=== PATIENT | male | born 1970 | race Caucasian/White ===

== ENCOUNTER 2021-10-10 03:40 | Emergency (ER) | payer MEDICAID, SELFPAY ==
[2021-10-10 03:45] VITALS: BP 155/77; BP 89/75; PULSE 79; PULSE 98; RESP 8; O2SAT 100; O2SAT 98; BMI 24.7
--- NOTE | 2021-10-10 04:03 | ED.OVERDOSE ---
HPI - Overdose General Chief Complaint: ETOH/Substance Use Stated Complaint: od Time Seen by Provider: 10/10/21 04:03 Source: EMS Mode of arrival: EMS Limitations: other (Unresponsive, overdosed) History of Present Illness HPI Narrative: Patient comes to the emergency room by ambulance. Patient was found lying down in a lawn chair in the sidewalk . Patient's family gave him 4 mg of intranasal Narcan. EMS reports that his respiratory rate increased from 8-20. They did not obtain an initial oxygen saturation. On arrival to the emergency room, patient arrived on a non-rebreather, saturating 100%, respiratory rate 8, pinpoint pupils, unresponsive. Four more mg of Narcan were given on arrival Related Data Allergies Allergy/AdvReac Type Severity Reaction Status Date / Time Unable to Assess Allergy Unverified 10/10/21 04:03 Review of Systems Review of Systems: Yes Unobtainable due to mental condition [facility] Past Medical History Medical History (Updated 10/10/21 @ 08:42 by Shayy Ladd MD) Overdose Substance abuse Social History Social History Advance Directives: No Advance Directives Information Provided: Yes Physical Exam Vital Signs: Vital Signs: Last Vital Signs Temp 98.2 F 10/10/21 04:08 Pulse 80 10/10/21 04:08 Resp 14 10/10/21 04:08 BP 125/71 10/10/21 04:08 Pulse Ox 100 10/10/21 04:08 O2 Del Method 10/10/21 04:08 Oxygen Flow Rate 15 10/10/21 03:45 BMI result Body Mass Index 24.7 Const: Other: Appearance: Unresponsive Eyes: Pinpoint pupils, Pupils equal, round and reactive to light. ENT: Pharynx normal. Neck: Normal inspection. Neck supple. No lymph nodes noted. No crepitus CVS: Normal heart rate and rhythm. Pulses normal. Normal S1 and S2 Respiratory: No respiratory distress. Respiratory rate 8, saturating 100% with a non-rebreather Breath sounds normal. No Wheezing. No rales Abdomen: Soft and nontender. No rigidity. No distention. Skin: Skin warm and dry. Normal skin color. Normal skin turgor. Extremities: No lower extremity edema. No Lacerations. No Rash Neuro: Unable to participating cranial nerve assessment. Psych: Unresponsive Course Course Course Narrative: Patient has received a total of 8 mg intranasal Narcan. Patient is barely waking up. Labs pending. Care team consult pending for WILBUR johnathan Patient will be provided with home Narcan Patient has been awake alert and oriented x3, normal gait. Patient's blood glucose is now 75. Patient eating. Patient states that he has no interest in talking to the care team or detox. Patient's family at bedside, patient will likely be discharged MDM - Overdose Lab Data Result diagrams: 10/10/21 04:00 10/10/21 04:00 Labs: Lab Results 10/10/21 10/10/21 10/10/21 Range/Units 04:00 04:00 06:08 WBC 10.0 (4.8-10.8) X10*3/uL RBC 4.53 L (4.60-5.80) X10*6/uL Hgb 14.2 (14.0-18.0) g/dl Hct 43.5 (42.0-52.0) % MCV 96.0 (80.0-98.0) fL MCH 31.3 (27.0-33.0) pg MCHC 32.6 (31.0-36.0) g/dl RDW 13.3 (11.0-16.0) % Plt Count 390 (160-400) X10*3/uL MPV 9.2 L (9.4-12.4) fL Immature Gran % (Auto) 0.9 H (0.0-0.4) % Neut % (Auto) 59.0 (45-73) % Lymph % (Auto) 31.9 (20-40) % Rogers % (Auto) 4.3 (2-11) % Eos % (Auto) 3.2 (0-4) % Baso % (Auto) 0.7 (0-2) % Lymph # (Auto) 3.2 (1.2-4.9) X10*3/uL Rogers # (Auto) 0.4 (0.1-1.2) X10*3/uL Eos # (Auto) 0.3 (0.0-0.4) X10*3/uL Baso # (Auto) 0.1 (0.0-0.2) X10*3/uL Abs Immat Gran (auto) 0.09 H (0.00-0.03) X10*3/uL Absolute Neuts (auto) 5.9 (2.0-8.3) x10*3/uL Absolute Nucleated RBC 0.000 (0.0-0.012) X10*3/uL Nucleated RBC % (auto) 0.0 (0.0-0.2) /100WBC Sodium 136 (135-145) mmol/L Potassium 4.5 (3.3-5.1) mmol/L Chloride 101 (96-108) mmol/L Carbon Dioxide 16 L (22-29) mmol/L Anion Gap 24 H (12-20) BUN 14 (9-16) mg/dL Creatinine 1.44 H (0.5-1.4) mg/dL Estim Creat Clear Calc 59.3 Estimated GFR 52 POC Glucose 65 (60-115) mg/dL Random Glucose 437 H* (60-115) mg/dL Calcium 8.3 L (8.4-10.2) mg/dL Total Bilirubin 0.2 (0.0-1.0) mg/dL Direct Bilirubin < 0.2 (0.0-0.5) mg/dL AST 227 H (5-37) U/L ALT 148 H (0-40) U/L Alkaline Phosphatase 105 (39-117) U/L Total Protein 7.5 (6.5-8.0) g/dL Albumin 4.3 (3.5-5.0) g/dL Ethyl Alcohol 165 mg/dL Acetone, Qual Negative (Negative) COVID-19 ([facility]) (Negative) COVID-19 Clin Com 10/10/21 10/10/21 Range/Units 07:26 07:27 WBC (4.8-10.8) X10*3/uL RBC (4.60-5.80) X10*6/uL Hgb (14.0-18.0) g/dl Hct (42.0-52.0) % MCV (80.0-98.0) fL MCH (27.0-33.0) pg MCHC (31.0-36.0) g/dl RDW (11.0-16.0) % Plt Count (160-400) X10*3/uL MPV (9.4-12.4) fL Immature Gran % (Auto) (0.0-0.4) % Neut % (Auto) (45-73) % Lymph % (Auto) (20-40) % Rogers % (Auto) (2-11) % Eos % (Auto) (0-4) % Baso % (Auto) (0-2) % Lymph # (Auto) (1.2-4.9) X10*3/uL Rogers # (Auto) (0.1-1.2) X10*3/uL Eos # (Auto) (0.0-0.4) X10*3/uL Baso # (Auto) (0.0-0.2) X10*3/uL Abs Immat Gran (auto) (0.00-0.03) X10*3/uL Absolute Neuts (auto) (2.0-8.3) x10*3/uL Absolute Nucleated RBC (0.0-0.012) X10*3/uL Nucleated RBC % (auto) (0.0-0.2) /100WBC Sodium (135-145) mmol/L Potassium (3.3-5.1) mmol/L Chloride (96-108) mmol/L Carbon Dioxide (22-29) mmol/L Anion Gap (12-20) BUN (9-16) mg/dL Creatinine (0.5-1.4) mg/dL Estim Creat Clear Calc Estimated GFR POC Glucose 73 (60-115) mg/dL Random Glucose (60-115) mg/dL Calcium (8.4-10.2) mg/dL Total Bilirubin (0.0-1.0) mg/dL Direct Bilirubin (0.0-0.5) mg/dL AST (5-37) U/L ALT (0-40) U/L Alkaline Phosphatase (39-117) U/L Total Protein (6.5-8.0) g/dL Albumin (3.5-5.0) g/dL Ethyl Alcohol mg/dL Acetone, Qual (Negative) COVID-19 ([facility]) Negative (Negative) COVID-19 Clin Com See Note Critical Care Time Critical Care Time Critical Care Time: Yes Total Critical Care Time: 30 Attestation: I have personally provided critical care time. Time includes review of lab data, radiology results, discussion with consultants, and monitoring for potential decompensation. Intervention performed as documented. Discharge Plan Discharge Clinical Impression: Overdose, Hyperglycemia Patient Disposition: Home, Self-Care Instructions: Adult Overdose (ED) Additional Instructions: Please follow-up with your primary care physician tomorrow. If you have any worsening or new symptoms, please return to the emergency room or call 911
--- NOTE | 2021-10-10 04:04 | ECG_ITS ---
Test Reason : OVERDOSE Blood Pressure : / mmHG Vent. Rate : 082 BPM Atrial Rate : 000 BPM P-R Int : 000 ms QRS Dur : 092 ms QT Int : 392 ms P-R-T Axes : 000 050 045 degrees QTc Int : 457 ms Artifact in tracing Normal sinus rhythm No obvious findings in visualized leads Consdier repeating as clinically indicated No previous ECGs available Referred By: Shayy Ladd Electronically Signed By:PARI MAURO
[2021-10-10 04:08] VITALS: BP 125/71; PULSE 80; RESP 14; TEMP 36.8; O2SAT 100
[2021-10-10 04:09] LABS: Basophils Absolute Auto 0.1 X10*3/uL (0.0-0.2); Basophils Percent Auto 0.7 % (0-2); Eosinophils Absolute Auto 0.3 X10*3/uL (0.0-0.4); Eosinophils Percent Auto 3.2 % (0-4); Hematocrit 43.5 % (42.0-52.0); Hemoglobin 14.2 g/dl (14.0-18.0); Imm Gran Abs Auto 0.09 X10*3/uL (0.00-0.03); Imm Gran Pct Auto 0.9 % (0.0-0.4); Lymphocytes Absolute Auto 3.2 X10*3/uL (1.2-4.9); Lymphocytes Percent Auto 31.9 % (20-40); MANUAL DIFF FLAG NO; Mean Corpuscular HGB Conc 32.6 g/dl (31.0-36.0); Mean Corpuscular Hemoglobin 31.3 pg (27.0-33.0); Mean Platelet Volume 9.2 fL (9.4-12.4); Monocytes Absolute Auto 0.4 X10*3/uL (0.1-1.2); Monocytes Percent Auto 4.3 % (2-11); Neutrophils Absolute Auto 5.9 x10*3/uL (2.0-8.3); Platelet Count 390 X10*3/uL (160-400); Red Blood Count 4.53 X10*6/uL (4.60-5.80); Red Cell Distribution Width 13.3 % (11.0-16.0)
[2021-10-10] MEDS: Naloxone HCl Nasal 4 MG SPRAY NOSTRILALT (04:16)
[2021-10-10] MEDS: 0.9 % Sodium Chloride 2,000 ML 999 ML IVCONT (04:16)
[2021-10-10 04:52] LABS: Alanine Aminotransferase 148 U/L (0-40); Albumin Level 4.3 g/dL (3.5-5.0); Alkaline Phosphatase 105 U/L (39-117); Anion Gap 24 (12-20); Aspartate Amino Transferase 227 U/L (5-37); Bilirubin Direct < 0.2 mg/dL (0.0-0.5); Bilirubin Total 0.2 mg/dL (0.0-1.0); Blood Urea Nitrogen 14 mg/dL (9-16); Calcium 8.3 mg/dL (8.4-10.2); Carbon Dioxide 16 mmol/L (22-29); Chloride 101 mmol/L (96-108); Creatinine Clr Calc Pharmacy 59.3; Estimated Glomerular Filt Rate 52; Ethanol 165 mg/dL; Glucose Random 437 mg/dL (60-115); Potassium 4.5 mmol/L (3.3-5.1); Sodium 136 mmol/L (135-145); Total Protein 7.5 g/dL (6.5-8.0)
[2021-10-10] MEDS: Insulin Regular, Human 100 UNIT/ML 3 ML VIAL 10 UNIT IVPUSH (05:00)
[2021-10-10 05:01] LABS: Acetone, serum QL Negative (Negative)
[2021-10-10] MEDS: 0.9 % Sodium Chloride 1,000 ML 999 ML IVCONT (05:02)
[2021-10-10 06:13] LABS: Glucose, Whole Blood 65 mg/dL (60-115)
[2021-10-10 07:31] LABS: Glucose, Whole Blood 73 mg/dL (60-115)
[2021-10-10 07:54] LABS: COVID-19 Test Negative (Negative); IDNOW Serial# 16C4AD1C
[2021-10-10 08:44] LABS: Glucose, Whole Blood 75 mg/dL (60-115)
--- NOTE | 2021-10-10 08:49 | PC.NURSE ---
this writer technical publications assumed care of this pt at 0700. pt alert and oriented, he denies pain. poc at 0730 75, sandwich and diet ciara dimas given but pt stated that he was not hungry. poc rechecked at 0840 75, sandwich and diet ciara dimas given and pt encouraged to eat to improve glucose level. Dr. Ladd at bedside, offered pt detox and he declined. will recheck sugar.
[2021-10-10 09:11] LABS: Glucose, Whole Blood 90 mg/dL (60-115)
== END 2021-10-10 09:31 | disposition home or self-care (01) ==
PROVIDERS: Emergency Provider Emergency Medicine
DX: T50.901A Poisoning by unspecified drugs, medicaments and biological substances, accidental (unintentional), initial encounter (principal); R40.4 Transient alteration of awareness; F19.10 Other psychoactive substance abuse, uncomplicated; Y92.480 Sidewalk as the place of occurrence of the external cause; R73.9 Hyperglycemia, unspecified; Z20.822 Contact with and (suspected) exposure to COVID-19
CPT/HCPCS: 80048; 80076; 82009; 82077; 82947; 85025; 87635; 93005; 96361; 96374; 99284

== ENCOUNTER → 2021-11-25 14:21 | Outpatient (BNVA) | payer MEDICAID, SELFPAY | PROVIDERS: PCP Nurse Practitioner; Visit Provider Surgery | DX: K40.90 Unilateral inguinal hernia, without obstruction or gangrene, not specified as recurrent (principal); K42.9 Umbilical hernia without obstruction or gangrene | CPT/HCPCS: 99202 ==

== ENCOUNTER → 2021-12-25 07:33 | Day surgery (SDC) | payer MEDICAID, SELFPAY ==
[2021-12-21 13:41] VITALS: BMI 23.1
--- NOTE | 2021-12-24 09:29 | P.CONAN_ITS ---
HPI - Anesthesia Eval Consult details Narrative: 51yo M for Right Hernia Repair Inguinal,with mesh, Right Hernia Repair Umbilical with mesh [facility] Active Problems Active Problems: All Active Problems (Updated 12/21/21 @ 13:41 by Iris Larry RN) Umbilical hernia (Acute) Right inguinal hernia (Acute) Overdose (Acute) Substance abuse (Acute) Past Medical History Medical History (Updated 12/21/21 @ 13:41 by Iris Larry RN) Overdose Right inguinal hernia Substance abuse Umbilical hernia Family History Family History (Updated 11/25/21 @ 14:34 by Traci Banuelos CMA) Mother CVD (cardiovascular disease) Father No problems noted. Surgical History Surgical History (Updated 11/25/21 @ 14:34 by Traci Banuelos CMA) No pertinent past surgical history Social History Social History (Updated 11/25/21 @ 14:31 by Traci Banuelos CMA) Are you a primary manager respiratory care to a significant other at home: No Do you presently have visiting nurse or other home services: No Alcohol intake: current Alcohol intake frequency: former alcohol drinker Patient Tobacco Use Status: Current everyday Tobacco user Tobacco use type: Cigarette Cigarette Packs Per Day: 1 Cigarettes Per Day: 20.0 Meds Allergies Allergy/AdvReac Type Severity Reaction Status Date / Time No Known Allergies Allergy Verified 11/25/21 14:32 Home Medications Medication Instructions Recorded Confirmed Last Taken Type aripiprazole 5 mg tablet 5 mg PO DAILY 11/25/21 12/21/21 Unknown History Exam Exam Date and Time: December 24, 2021 0929 Height,Weight and Vital Signs: Height 5 ft 9 in Weight 70.931 kg Pertinent Lab Results Pertinent Lab Results: Laboratory Tests 10/10/21 10/10/21 04:00 04:00 WBC 10.0 Hgb 14.2 Hct 43.5 Plt Count 390 Sodium 136 Potassium 4.5 Chloride 101 Carbon Dioxide 16 L BUN 14 Creatinine 1.44 H Narrative Narrative: EKG 09/2021 Vent. Rate : 082 BPM ? ? Atrial Rate : 000 BPM ?? P-R Int : 000 ms? QRS Dur : 092 ms ? ? QT Int : 392 ms ? ? ? P-R-T Axes : 000 050 045 degrees ?? QTc Int : 457 ms ? Artifact in tracing Normal sinus rhythm No obvious findings in visualized leads Consdier repeating as clinically indicated No previous ECGs available Assessment and Plan Assessment Anesthesia Assessment: Chart Reviewed
[2021-12-25 07:59] LABS: Amphetamine Screen Urine Not Detected (Not Detect); Barbiturates, Urine Not Detected (Not Detect); Benzodiazepines Screen Urine Not Detected (Not Detect); Cannabinoid Screen Urine Not Detected (Not Detect); Cocaine Screen Urine POSITIVE (Not Detect); Fentanyl, urine POSITIVE (Not Detect); Opiate Screen Urine Not Detected (Not Detect); Phencyclidine Screen Urine Not Detected (Not Detect)
== END ==
PROVIDERS: Nurse Practitioner; Visit Provider Surgery
DX: K40.90 Unilateral inguinal hernia, without obstruction or gangrene, not specified as recurrent (principal); K42.9 Umbilical hernia without obstruction or gangrene; Z53.8 Procedure and treatment not carried out for other reasons; R82.5 Elevated urine levels of drugs, medicaments and biological substances
CPT/HCPCS: 80307

== ENCOUNTER 2023-07-25 05:09 | Emergency (ER) | payer SELFPAY ==
--- NOTE | ~2023-07-25 | XR_ITS ---
EXAMINATION: XR CHEST CLINICAL INFORMATION: Overdose. Hypoxia. COMPARISON: None available. TECHNIQUE: Frontal view of the chest was obtained. FINDINGS: No significant abnormality is noted involving the heart, lungs, mediastinum, bony thorax or soft tissues. XR/XR chest 1V IMPRESSION: Unremarkable examination.
[2023-07-25 05:21] VITALS: BP 139/92; PULSE 140; PULSE 92; RESP 14; TEMP 36.3; O2SAT 97; BMI 24.2
[2023-07-25 05:52] LABS: Basophils Absolute Auto 0.1 X10*3/uL (0.0-0.2); Basophils Percent Auto 0.2 % (0-2); Eosinophils Absolute Auto 0.1 X10*3/uL (0.0-0.4); Eosinophils Percent Auto 0.4 % (0-4); Hematocrit 46.8 % (42.0-52.0); Hemoglobin 15.7 g/dl (14.0-18.0); Imm Gran Abs Auto 0.24 X10*3/uL (0.00-0.03); Imm Gran Pct Auto 0.9 % (0.0-0.4); Lymphocytes Percent Auto 3.9 % (20-40); MANUAL DIFF FLAG SCAN; Mean Corpuscular HGB Conc 33.5 g/dl (31.0-36.0); Mean Corpuscular Hemoglobin 32.1 pg (27.0-33.0); Mean Corpuscular Volume 95.7 fL (80.0-98.0); Monocytes Absolute Auto 0.9 X10*3/uL (0.1-1.2); Monocytes Percent Auto 3.5 % (2-11); Neutrophils Absolute Auto 23.1 x10*3/uL (2.0-8.3); Neutrophils Percent Auto 91.1 % (45-73); Platelet Count 414 X10*3/uL (160-400); Red Blood Count 4.89 X10*6/uL (4.60-5.80); SCAN SMEAR FLAG 1; White Blood Count 25.4 X10*3/uL (4.8-10.8)
[2023-07-25 05:56] LABS: VBG Base Excess -7.2 mmol/L; VBG HCO3 20 mmol/L (22-26); VBG O2 % Saturation < 30.0 %; VBG pCO2 49 mmHg; VBG pH 7.22 (7.32-7.43); VBG pO2 25 mmHg
[2023-07-25 05:56] LABS: Venous Blood Gas Refer to POC result
[2023-07-25 06:13] LABS: Alanine Aminotransferase 212 U/L (0-40); Albumin Level 4.6 g/dL (3.5-5.0); Alkaline Phosphatase 162 U/L (39-117); Anion Gap 22 (12-20); Aspartate Amino Transferase 381 U/L (5-37); Bilirubin Total 0.4 mg/dL (0.0-1.0); Blood Urea Nitrogen 16 mg/dL (9-16); Carbon Dioxide 19 mmol/L (22-29); Chloride 109 mmol/L (96-108); Creatinine Clr Calc Pharmacy 62.8; Estimated Glomerular Filt Rate > 60; Ethanol 40 mg/dL; Glucose Random 54 mg/dL (60-115); Lipase 58 U/L (8-78); Potassium 4.9 mmol/L (3.3-5.1); Sodium 145 mmol/L (135-145); Total Protein 8.1 g/dL (6.5-8.0)
--- NOTE | 2023-07-25 06:21 | PC.NURSE ---
Blood glucose found to be 54. Pt given apple juice, ciara dimas, and a sandwich. made aware.
[2023-07-25 06:25] LABS: SLIDE REVIEW VERIFIED
--- NOTE | 2023-07-25 06:27 | ED_ITS ---
HPI - Overdose General Chief Complaint: Overdose Stated Complaint: od Time Seen by Provider: 07/25/23 05:14 Source: patient and EMS Mode of arrival: EMS Limitations: no limitations History of Present Illness ED Provider: Dr. Gonzalo Kolb HPI Narrative: 53-year-old male with a history of opiate use disorder who presents emergency department for accidental overdose. The patient denied using drugs and states he does not know why he is here today. According to EMS patient was found unresponsive in an apartment building. First responders gave him intranasal Narcan 2 mg with no response. Paramedics then gave him intranasal Narcan 2 mg again with no response. An IV was established and he was given Narcan 2 mg IV and the patient woke up. Patient became very combative and had to be transported in restraints. When he emergency department he was awake enough to cooperate. He was transferred to the stressor and not placed in restraints. Paramedics report that the patient did have an initial O2 saturation of 50% on room air. Shortly before arriving in the emergency department the patient pulled out his own IV. Related Data Home Medications ?Medication ?Instructions ?Recorded ?Confirmed aripiprazole 5 mg tablet 5 mg PO DAILY 11/25/21 12/21/21 Allergies Allergy/AdvReac Type Severity Reaction Status Date / Time No Known Allergies Allergy Verified 07/25/23 05:25 Review of Systems 2 Review of Systems: Yes all other systems are reviewed and are negative [facility] Past Medical History [facility] Narrative: Past medical history: Patient was seen in the emergency department on 10/10/2021 for an accidental opiate overdose. Social history. He does smoke cigarettes. He does drink alcohol. He denies using drugs. Medical History (Updated 07/25/23 @ 06:44 by Gonzalo Kolb MD) Umbilical hernia Right inguinal hernia Overdose Substance abuse Surgical History (Updated 11/25/21 @ 14:34 by Traci Banuelos CMA) No pertinent past surgical history Family History Family History (Updated 11/25/21 @ 14:34 by Traci Banuelos CMA) Mother CVD (cardiovascular disease) Father No problems noted. Social History Social History (Updated 11/25/21 @ 14:31 by Traci Banuelos CMA) Are you a primary field care advocate to a significant other at home: No Do you presently have visiting nurse or other home services: No Alcohol intake: current Alcohol intake frequency: former alcohol drinker Alcohol type: hard liquor Patient Tobacco Use Status: Current everyday Tobacco user Tobacco use type: Cigarette Cigarette Packs Per Day: 1 Cigarettes Per Day: 20.0 Smoked in Last 30 Days: Yes Use of substances other than those prescribed or required for medical reasons: No Advance Directives: No Do you have a plan to hurt others: No Plan Physical Exam 2 Vital Signs: Vital Signs: Last Vital Signs Temp 97.4 F 07/25/23 05:21 Pulse 92 07/25/23 05:21 Resp 14 07/25/23 05:21 BP 139/92 H 07/25/23 05:21 Pulse Ox 97 07/25/23 05:21 O2 Del Method Room Air 07/25/23 05:21 BMI result Body Mass Index 24.2 Vital signs were Exam: General: Patient is awake, able to answer questions, he is tremulous, he was diaphoretic Head: Normocephalic, atraumatic EENT: PERRL, Lids normal, sclera normal, conjunctiva normal, nose normal , ears normal, throat without erythema or exudates Neck: Supple, no adenopathy Lung: Breath sounds were symmetric, patient had diffuse rhonchi with no wheezing or rales Chest: symmetric movement, nontender Heart: regular rate and rhythm, normal S1, S2 no murmurs or rubs Abdomen: soft, non-tender, nondistended, normal bowel sounds Back: no vertebral tenderness, no CVAT Extremities: no deformities, moves all extremities symmetrically Neuro: Awake, alert, oriented, normal speech, cranial nerves intact, moves all extremities symmetrically Medications Administered Discontinued Medications Generic Name Dose Route Start Last Admin Trade Name Freq PRN Reason Stop Dose Admin Diphenhydramine HCl 50 mg 07/25/23 05:14 07/25/23 05:33 Diphenhydramine Hcl 50 Mg/Ml Vial IM 07/25/23 05:15 Not Given ONCE ONE Haloperidol Lactate 10 mg 07/25/23 05:14 07/25/23 05:34 Haloperidol Lactate 5 Mg/Ml Vial IM 07/25/23 05:15 Not Given ONCE ONE Midazolam HCl 2 mg 07/25/23 05:14 07/25/23 05:34 Midazolam Hcl/Pf 2 Mg/2 Ml Vial IM 07/25/23 05:15 Not Given ONCE ONE Medical Decision Making Medical Decision Making [facility] Narrative: 53-year-old male with a history of opiate use disorder who presents emergency department for unintentional opiate overdose. Patient was treated with intranasal Narcan x2 and IV Narcan 2 mg IV prior to coming to the emergency department. He did wake up after this treatment and was initially combative but here in the emergency department he was cooperative. Patient's vital signs were normal. Lung exam did reveal diffuse rhonchi otherwise exam was unremarkable pain. Differential diagnosis: ?Includes but is not limited to opiate overdose, hypo glycemia, aspiration pneumonia, electrolyte abnormalities, anemia Following evaluation was ordered: CBC, CMP, lipase, VBG, ethanol level, urine drug screen, chest x-ray one view Course: 06:35 My interpretation patient's laboratory evaluation is as follows: WBC elevated 25,400 left shift 91% neutrophils. Count elevated 414,000. VBG revealed pH of 7.2 to, normal pCO2 of 49, low bicarb of 26-this is consistent with metabolic acidosis with respiratory compensation. Anion gap was elevated 22. BUN creatinine were normal 16 and 1.24. Glucose low 54. AST, ALT, alk-phos were elevated 381, 212 and 162-he has had similar elevations in the past, given his drug use may have hepatitis-C. Bilirubin was normal. CK was elevated 221. Lipase was normal. Ethanol level was detectable but not above the intoxication level at 40. Chest x-ray was unremarkable. I ordered a care team SUDE exam Admission/Observation Consideration of admission/observation: Escalation of care including admission/observation considered Lab Data [facility] Lab Attestation statement: I reviewed the patient's lab results. 07/25/23 05:42 07/25/23 05:42 Labs: Lab Results 07/25/23 07/25/23 Range/Units 05:42 05:46 WBC 25.4 H (4.8-10.8) X10*3/uL RBC 4.89 (4.60-5.80) X10*6/uL Hgb 15.7 (14.0-18.0) g/dl Hct 46.8 (42.0-52.0) % MCV 95.7 (80.0-98.0) fL MCH 32.1 (27.0-33.0) pg MCHC 33.5 (31.0-36.0) g/dl RDW 14.0 (11.0-16.0) % Plt Count 414 H (160-400) X10*3/uL MPV 9.0 L (9.4-12.4) fL Immature Gran % (Auto) 0.9 H (0.0-0.4) % Neut % (Auto) 91.1 H (45-73) % Lymph % (Auto) 3.9 L (20-40) % Evans % (Auto) 3.5 (2-11) % Eos % (Auto) 0.4 (0-4) % Baso % (Auto) 0.2 (0-2) % Lymph # (Auto) 1.0 L (1.2-4.9) X10*3/uL Evans # (Auto) 0.9 (0.1-1.2) X10*3/uL Eos # (Auto) 0.1 (0.0-0.4) X10*3/uL Baso # (Auto) 0.1 (0.0-0.2) X10*3/uL Abs Immat Gran (auto) 0.24 H (0.00-0.03) X10*3/uL Absolute Neuts (auto) 23.1 H (2.0-8.3) x10*3/uL Absolute Nucleated RBC 0.000 (0.0-0.012) X10*3/uL Nucleated RBC % (auto) 0.0 (0.0-0.2) /100WBC Smear Tech's Comments VERIFIED VBG pH 7.22 L (7.32-7.43) VBG pCO2 49 mmHg VBG pO2 25 mmHg VBG HCO3 20 L (22-26) mmol/L VBG O2 Saturation < 30.0 % VBG Base Excess -7.2 mmol/L Sodium 145 (135-145) mmol/L Potassium 4.9 (3.3-5.1) mmol/L Chloride 109 H (96-108) mmol/L Carbon Dioxide 19 L (22-29) mmol/L Anion Gap 22 H (12-20) BUN 16 (9-16) mg/dL Creatinine 1.24 (0.5-1.4) mg/dL Estim Creat Clear Calc 62.8 Estimated GFR > 60 Random Glucose 54 L* (60-115) mg/dL Calcium 9.0 D (8.4-10.2) mg/dL Total Bilirubin 0.4 (0.0-1.0) mg/dL AST 381 H (5-37) U/L ALT 212 H (0-40) U/L Alkaline Phosphatase 162 H (39-117) U/L Total Creatine Kinase 221 H (38-174) U/L Total Protein 8.1 H (6.5-8.0) g/dL Albumin 4.6 (3.5-5.0) g/dL Lipase 58 (8-78) U/L Ethyl Alcohol 40 mg/dL Radiology Impression Discussion of test interpretation with radiology: I have reviewed the radiologist's reading. Radiologist Impression: XR chest 1V IMPRESSION: Unremarkable examination. Dictated By: Sang Sheets Independent Historian Clinical information obtained from an independent historian. History obtained from or confirmed by: Other (Daughter, Leia) Chronic Conditions Patient?s care impacted by: Other (Opiate use disorder) Discharge Plan Discharge Clinical Impression: Overdose, Substance abuse Patient Disposition: Still a Patient Additional Instructions: You were found unresponsive in an apartment complex. You overdosed on a narcotic medication in the paramedics save your life by giving you Narcan. Your blood work did reveal elevated liver tests. You had similar elevations in the past. You will need to follow-up with your primary care doctor to determine the cause of this your abnormal level tests and see if there is a treatment. I did add a hepatitis a, B and C past to your blood work. Your doctor will have to check these results for you. Your are being discharged home with intranasal Narcan. If you are going to continue to use heroin, you should make sure that there is a sober person with you that is not using drugs and that this person can administer intranasal Narcan in the event that you stop breathing. Follow-up with your doctor in 2 days. Please return to the emergency department if your symptoms get worse or if you develop any symptoms that are concerning to you. Prescriptions: No Action aripiprazole 5 mg tablet 5 mg PO DAILY Print Language: Maltese
[2023-07-25 07:06] VITALS: BP 111/73; PULSE 84; RESP 16; TEMP 36.1; O2SAT 93
[2023-07-25] MEDS: Naloxone HCl Nasal TAKE HOME 4 MG SPRAY 8 MG NOSTRILALT (07:06)
--- NOTE | 2023-07-25 07:17 | PC.NURSE ---
Resumed care of patient, MD at bedside, pt refusing SUDE eval at this time, family at bedside and in agreement to bring him home. Nasal Narcan given to bring home, vitals [place], Hep panel drawn prior to DC. Pt brought to security for belongings in [place]
[2023-07-25 07:20] VITALS: BP 111/73; PULSE 84; RESP 16; TEMP 36.1; O2SAT 93
[2023-07-26 08:42] LABS: HBS Num1 1.18 mIU/mL (0-7.99); HBc Num1 0.19 S/CO (0.00-0.79); HBsAGNum1 0.29 S/CO (0.00-0.99); Hepatitis A Antibody IgM 0.12 Index (0-0.79); Hepatitis B Core Antibody Nonreactive (Nonreactive); Hepatitis B Surface Antigen Negative (Negative); ~HepC Num1 0.18 S/CO (0.00-0.79); ~Hepatitis A Antibody IgM Nonreactive (Nonreactive); ~Hepatitis B Surface Antibody NONREACTIVE (Nonreactive); ~Hepatitis C Antibody Nonreactive (Nonreactive)
== END 2023-07-25 07:21 | disposition still patient (30) ==
PROVIDERS: Emergency Provider Emergency Medicine Emergency Medical Services
DX: T40.601A Poisoning by unspecified narcotics, accidental (unintentional), initial encounter (principal); F11.10 Opioid abuse, uncomplicated; Y92.9 Unspecified place or not applicable
CPT/HCPCS: 36415; 71045; 80053; 80307; 82550; 82803; 83690; 85025; 86704; 86706; 86709; 86803; 87340; 99284